=== PATIENT | female | born 1965 | race Caucasian/White ===

== ENCOUNTER 2020-10-30 13:13 | Outpatient (CLI) | payer MEDICAID, SELFPAY ==
--- NOTE | 2020-10-30 13:19 | US_ITS ---
WS: [id number] ULTRASOUND PELVIS TECHNIQUE: Transabdominal and transvaginal. ULTRASOUND PELVIS TECHNIQUE: Transabdominal. CLINICAL INFORMATION: PELVIC PAIN LMP: : No. COMPARISON: None. FINDINGS: Uterus Orientation: Anteverted. Size: 7.2 cm x 4.3 cm x 3.1 cm. Masses: None. Cervix: Hypoechoic well-circumscribed lesion lesion in the cervix measuring 8.7 x 9.6 x 8.3 mm. No in ternal vascularity. This has a solid appearance. Endometrium: Normal. Endometrium thickness: 0.5 cm. Adnexa: Complex cystic and solid lesion right ovary measuring 6.4 x 3.3 x 5.1 cm suspicious for cysti c neoplasm. Recommend [employer] consultation for resection. Internal vascularity in the solid component. Right ovary size: 6.7 cm x 5.3 cm x 3.8 cm. Right ovary volume: 71.5 ccm3. Left ovary size: 1.4 cm x 1.1 cm x 1.2 cm. Left ovary volume: 1.0 ccm3 Free fluid: Trace Other findings: None. US/US pelvic with transvaginal IMPRESSION: 1. Normal uterus and endometrium. 2. Complex cystic and solid lesion right ovary measuring 6.4 x 3.3 x 5.1 cm perkins spicious for cystic ovarian neoplasm. Recommend [employer] consultation for resection. Internal vascularity in the solid component. 3. Normal left ovary. 4. Small amount of free fluid in the cul-de-sac. 5. Hypoechoic well-circumscribed lesion in the cervix measuring 8.7 x 9.6 x 8. 3 mm has a solid appearance. No internal vascularity. Differential consideratio ns include cervical leiomyoma or cervical carcinoma. This can be further evalua trever with hysteroscopy.
== END 2020-10-30 13:14 | disposition home or self-care (01) ==
LOC: US 13:15
PROVIDERS: PCP Nurse Practitioner Family; Visit Provider Nurse Practitioner Family
DX: R10.2 Pelvic and perineal pain (principal)
CPT/HCPCS: 76830; 76856

== ENCOUNTER → 2025-09-11 11:22 | Outpatient (BNVA) | payer MEDICAID, SELFPAY | PROVIDERS: PCP Nurse Practitioner Family; Visit Provider Dermatology | DX: D22.5 Melanocytic nevi of trunk (principal); D22.39 Melanocytic nevi of other parts of face; D22.61 Melanocytic nevi of right upper limb, including shoulder; D48.5 Neoplasm of uncertain behavior of skin | CPT/HCPCS: 40808; 99203 ==

== ENCOUNTER → 2025-10-12 09:38 | Outpatient (BNVA) | payer MEDICAID, SELFPAY | PROVIDERS: PCP Nurse Practitioner Family; Visit Provider Dermatology | DX: K13.79 Other lesions of oral mucosa (principal); D22.39 Melanocytic nevi of other parts of face; D48.5 Neoplasm of uncertain behavior of skin | CPT/HCPCS: 11102; 99213 ==